=== PATIENT | male | born 1970 ===

== ENCOUNTER 2018-08-11 10:48 | Emergency (ER) | payer BC ==
[2018-08-11] MEDS ORDERED: Ketorolac 60 MG/2 ML SDV IM ONE (10:59)
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
--- NOTE | 2018-08-11 11:36 | CR ---
INDICATION: Pain following an injury. TECHNIQUE: Two views of the right tibia and fibula. FINDINGS: Again noted is a previously described fracture of the distal fibula with disruption of the ankle mortise. The proximal tibia and fibula are intact. IMPRESSION: Fracture of the distal fibula with disruption of the ankle mortise. Intact proximal tibia and fibula. Dictated by Yulia John MD @ Aug 11 2018 11:34AM Signed by Dr. Yulia John @ Aug 11 2018 11:35AM
--- NOTE | 2018-08-11 11:36 | CR ---
INDICATION: Pain following injury. TECHNIQUE: Three portable views right ankle. FINDINGS: Oblique fracture of the distal fibula. Fracture fragments in good position and alignment. Marked asymmetry of the ankle mortise with medial displacement of the distal tibia relative to its normal anatomic position and widening of the medial aspect of the ankle mortise. Mild lateral soft tissue swelling. IMPRESSION: 1. Nondisplaced fracture of the distal fibula with soft tissue swelling. 2. Disruption of the ankle mortise with medial displacement of the distal tibia relative to its normal anatomic position. Dictated by Yulia John MD @ Aug 11 2018 11:32AM Signed by Dr. Yulia John @ Aug 11 2018 11:34AM
== END 2018-08-11 12:28 ==
LOC: MW.ED 10:48
DX: S82.831A Other fracture of upper and lower end of right fibula, initial encounter for closed fracture (principal); S00.83XA Contusion of other part of head, initial encounter; Y04.2XXA Assault by strike against or bumped into by another person, initial encounter
CPT/HCPCS: 29515; 73590; 73610; 96372; 99284; J1885